=== PATIENT | female | born 1985 | race Caucasian/White ===

== ENCOUNTER → 2016-04-19 | Outpatient (REF) | LOC: WSOH 09:06 | DX: Z02.89 Encounter for other administrative examinations (principal) ==

== ENCOUNTER → 2016-11-30 | Outpatient (REF) | LOC: WSOH 09:54 | DX: Z00.00 Encounter for general adult medical examination without abnormal findings (principal) ==

== ENCOUNTER 2017-06-25 14:35 | Emergency (ER) | payer OTHER, BC ==
[~2017-06-25] VITALS: Ht 144.8 cm; Wt 54.5 kg
[2017-06-25 15:08] VITALS: BP 124/84; TEMP 99
[2017-06-25] MEDS ORDERED: ROBAXIN 75750 MG/TAB PO (16:24)
[2017-06-25 16:44] VITALS: PULSE 72
== END 2017-06-25 16:44 | disposition home or self-care (01) ==
LOC: COL.ER 14:35
DX: S16.1XXA Strain of muscle, fascia and tendon at neck level, initial encounter (principal); M79.1 Myalgia; V49.40XA Driver injured in collision with unspecified motor vehicles in traffic accident, initial encounter

== ENCOUNTER 2017-07-28 09:15 | Outpatient (RCR) | payer OTHER ==
[~2017-07-28 09:15] MED LIST: ROBAXIN 75750 MG/TAB PO
== END 2017-08-01 09:10 | disposition home or self-care (01) ==
LOC: WSOH 09:15
DX: S16.1XXD Strain of muscle, fascia and tendon at neck level, subsequent encounter (principal); M54.5 Low back pain; R51 Headache; X50.0XXD Overexertion from strenuous movement or load, subsequent encounter; Y99.0 Civilian activity done for income or pay

== ENCOUNTER 2017-08-08 10:34 | Outpatient (RCR) | payer OTHER | END 2017-10-02 | disposition home or self-care (01) | LOC: WSOH | DX: S16.1XXA Strain of muscle, fascia and tendon at neck level, initial encounter (principal); M25.512 Pain in left shoulder; W22.8XXA Striking against or struck by other objects, initial encounter; V64.5XXA Driver of heavy transport vehicle injured in collision with heavy transport vehicle or bus in traffic accident, initial encounter; Y92.481 Parking lot as the place of occurrence of the external cause; Y99.0 Civilian activity done for income or pay; Z87.891 Personal history of nicotine dependence; Z79.1 Long term (current) use of non-steroidal anti-inflammatories (NSAID); Z79.899 Other long term (current) drug therapy ==

== ENCOUNTER 2017-12-05 08:06 | Outpatient (RCR) | payer OTHER | END 2018-03-05 | disposition home or self-care (01) | LOC: WSOH | DX: S16.1XXD Strain of muscle, fascia and tendon at neck level, subsequent encounter (principal); M25.512 Pain in left shoulder; M54.5 Low back pain; R51 Headache; V79 Bus occupant injured in other and unspecified transport accidents; Z79.899 Other long term (current) drug therapy ==

== ENCOUNTER 2018-10-22 12:25 | Emergency (ER) | payer BC ==
[~2018-10-22] VITALS: Ht 147.3 cm; Wt 71.8 kg
[2018-10-22 12:37] VITALS: BP 106/73; PULSE 87; TEMP 98.9
[2018-10-22] MEDS ORDERED: PRILOSEC 20MG20 MG PO (12:49)
[2018-10-22] MEDS ORDERED: PRENATAL (12:49)
[2018-10-22 13:18] LABS: BASO % 0.3 % (0.0-2.0); EOS # 0.1 (0.0-0.7); EOS % 0.5 % (0-4.0); GRAN # 8.1 (1.4-6.5); GRAN % 74.8 % (42.2-75.2); HEMOGLOBIN 12.3 g/dl (12.5-16.0); LYMPH # 1.9 (1.2-3.4); LYMPH % 17.2 % (20.0-51.0); MEAN CELL VOLUME 90 fl (80.0-100.0); MEAN CORPUSCULAR HEMOGLOBIN 31 pg (27.0-31.0); MEAN CORPUSCULAR HGB CONC 34 g/dl (33.0-37.0); MEAN PLATELET VOLUME 9.9 fl (7.4-10.4); MONO # 0.7 (0.1-0.6); MONO % 6.8 % (1.7-9.3); PLATELET COUNT 242 K/mm3 (130-400); REDCELL DISTRIBUTION WIDTH-CV 12.3 % (11.5-14.5)
[2018-10-22 13:24] LABS: HEMATOCRIT 35.8 % (37.0-47.0)
[2018-10-22 13:32] LABS: ALBUMIN 3.5 gm/dL (3.5-5.0); BILIRUBIN,TOTAL 0.3 mg/dL (0.0-1.0); CALCIUM 9.3 mg/dL (8.4-10.2); CREATININE, serum 0.39 (0.52-1.25); POTASSIUM 4.1 mmol/L (3.4-5.0)
--- NOTE | 2018-10-22 13:32 | NUR ---
G2L0 at 30.4 weeks gestation. Denies vaginal bleeding, regular ctx, LOF and reports GFM. 135 baseline with accelerations. No decels.
[2018-10-22 13:52] LABS: COLLECTION METHOD CLEAN CATCH
[2018-10-22 13:59] LABS: MUCOUS Present /lpf; PH 7 (5-8); SQUAMOUS EPITHELIAL None Seen /hpf; URINE APPEARANCE Clear; URINE BACTERIA None Seen /hpf; URINE BILIRUBIN Negative (NEGATIVE); URINE BLOOD Negative (NEGATIVE); URINE COLOR Yellow; URINE GLUCOSE Negative (NEGATIVE); URINE KETONE Negative (NEGATIVE); URINE LEUKOCYTE ESTERASE Negative (NEGATIVE); URINE NITRATE Negative (NEGATIVE); URINE PROTEIN(semi-quant) Negative (NEGATIVE); URINE RBC None Seen /hpf; URINE UROBILINOGEN Negative (NEGATIVE)
[2018-10-22] MEDS ORDERED: ATARAX 10MG10 MG/TAB PO (15:00)
== END 2018-10-22 15:13 | disposition home or self-care (01) ==
LOC: COL.ER 12:25
PROVIDERS: Family Medicine
DX: O26.893 Other specified pregnancy related conditions, third trimester (principal); L29.9 Pruritus, unspecified; Z3A.30 30 weeks gestation of pregnancy

== ENCOUNTER 2018-12-26 09:17 | Inpatient (IN) | payer BC, MEDICAID ==
[~2018-12-26] VITALS: Ht 147.3 cm; Wt 172.0 kg
[2018-12-26] VITALS (16 sets, daily range): BP systolic 98–121; BP diastolic 31–71; PULSE 64–113; TEMP 97.9–98.2
[~2018-12-26 09:17] MED LIST changes: +ATARAX 10MG10 MG/TAB PO; +PRENATAL; +PRILOSEC 20MG20 MG PO
[2018-12-26 10:11] LABS: BASO % 0.3 % (0.0-2.0); EOS # 0.1 (0.0-0.7); EOS % 0.8 % (0-4.0); GRAN # 6.5 (1.4-6.5); GRAN % 72.5 % (42.2-75.2); HEMOGLOBIN 12.1 g/dl (12.5-16.0); LYMPH # 1.8 (1.2-3.4); LYMPH % 19.5 % (20.0-51.0); MEAN CELL VOLUME 88 fl (80.0-100.0); MEAN CORPUSCULAR HEMOGLOBIN 29 pg (27.0-31.0); MEAN CORPUSCULAR HGB CONC 33 g/dl (33.0-37.0); MEAN PLATELET VOLUME 10.7 fl (7.4-10.4); MONO # 0.6 (0.1-0.6); MONO % 6.6 % (1.7-9.3); PLATELET COUNT 251 K/mm3 (130-400); RED BLOOD COUNT 4.16 M/mm3 (4.10-5.30); REDCELL DISTRIBUTION WIDTH-CV 12.7 % (11.5-14.5)
[2018-12-26 10:22] LABS: TRICYCLIC ANTIDEPRESS URINE NEGATIVE
[2018-12-26 10:33] LABS: HEMATOCRIT 36.6 % (37.0-47.0)
--- NOTE | 2018-12-26 14:47 | NUR ---
Received call from dietary staff about patient requesting eggs despite egg allergy alert. Discussed with patient's nurse who talked with patient. Egg allery removed from [employer].
[2018-12-27 03:58] VITALS: BP 111/62; PULSE 70; TEMP 98
[2018-12-27 07:43] VITALS: BP 108/68; PULSE 76; TEMP 98.2
--- NOTE | 2018-12-27 10:12 | NUR ---
Initial visit; Patient thanked [employer] Operator for offering congratulations and God's blessings for the of her son. F[employer] Welding [employer] Operator thanked mom for choosing [facility].
[2018-12-27 16:19] VITALS: BP 112/68; PULSE 78; TEMP 98.1
[2018-12-27 20:14] VITALS: BP 95/62; PULSE 80; TEMP 97.6
[2018-12-28 08:00] VITALS: BP 122/69; PULSE 86; TEMP 98.2
--- NOTE | 2018-12-28 08:00 | NUR ---
Rests in bed, alert. 0810 Ibuprofen 800 mg given as ordered. States unable to feed baby, says he wants to sleep. Assisted with , baby latches on well.
[2018-12-28] MEDS ORDERED: MOTRIN 800800 MG/TAB PO (08:42)
[2018-12-28] MEDS ORDERED: PERCOCET 325 MG1 TA2 PO (08:42)
[2018-12-28 15:15] VITALS: BP 129/75; PULSE 92; TEMP 98.3
--- NOTE | 2018-12-28 15:15 | NUR ---
Percocet 5/325 mg two given per request and as ordered.
--- NOTE | 2018-12-28 17:08 | NUR ---
Rests in bed, alert. Ibuprofen 800 mg given as ordered.
[2018-12-28 20:45] VITALS: BP 115/83; PULSE 76; TEMP 97.4
[2018-12-29 07:03] VITALS: BP 112/66; PULSE 76; TEMP 98.1
== END 2018-12-29 11:48 | disposition home or self-care (01) | DRG 788 ==
LOC: OB 09:17
PROVIDERS: ADMIT Obstetrics & Gynecology
PROC: 10D00Z1 Extraction of Products of Conception, Low, Open Approach (ICD-10-PCS; principal; 2018-12-26)
DX: O99.824 Streptococcus B carrier state complicating childbirth (principal); O99.354 Diseases of the nervous system complicating childbirth; O99.62 Diseases of the digestive system complicating childbirth; K21.9 Gastro-esophageal reflux disease without esophagitis; K58.9 Irritable bowel syndrome, unspecified; G89.29 Other chronic pain; O75.89 Other specified complications of labor and delivery; M79.7 Fibromyalgia; O75.3 Other infection during labor; G43.909 Migraine, unspecified, not intractable, without status migrainosus; Z3A.39 39 weeks gestation of pregnancy; Z37.0 Single live birth
CPT/HCPCS: J0171; J0690; J1885; J2175; J2370; J2405; J2590; J3010; J7120